=== PATIENT | male | born 1965 | race Caucasian/White ===

== ENCOUNTER 2021-02-23 16:42 | Inpatient (IN) | payer MEDICARE ==
[~2021-02-23] VITALS: Ht 188 cm; Wt 146.7 kg
[~2021-02-23 16:42] MED LIST: ACTOS30 MG PO; ADALAT CC30 MG PO; ASPIRIN325 MG PO; BENICAR *OUT OF20 MG PO; BREO ELLIPTA 11 EACH INH; BUMEX1 MG PO; CRESTOR10 MG PO; HCTZ25 MG PO; K-DUR20 MEQ PO; LOTREL; MAGNESIUM400 MG PO; METFORMIN HCL500 MG PO; MIRALAX17 GM PO; NORCO 5-325 TA1 EACH PO; NORCO 7.5-3251 EACH PO; OCEAN37.5 ML; VENTOLIN HFA IN18 GM INH; XANAX0.5 MG PO
[2021-02-23 18:38] LABS: BASOPHIL 0.4 % (0-2); HCT 44.8 % (42.0-52.0); LYMPHOCYTE 20.1 % (15-48); MCH 28.9 pg (25.0-31.0); MCHC 31.3 g/dL (32.0-36.0); MCV 92.4 fL (78.0-100.0); MONOCYTE 7.3 % (0-12); NRBC 0; PLT 273 K/uL (150-400); RBC 4.85 M/uL (4.70-6.00); RDW 14.6 % (11.5-14.0)
[2021-02-23 19:01] LABS: ALBUMIN 3.5 g/dL (3.4-5.0); BILIRUBIN - TOTAL 0.4 mg/dL (0.2-1.0); BUN/CREAT RATIO (CALC) 9.9 RATIO; CREATININE 0.81 mg/dL (0.67-1.17); GLOBULIN (CALCULATION) 4.9 g/dL; POTASSIUM 3.9 mmol/L (3.5-5.1); TOTAL PROTEIN 8.4 g/dL (6.4-8.2)
[2021-02-23 19:10] LABS: LACTIC ACID 2.3 mmol/L (0.4-1.9)
[2021-02-23 19:40] LABS: BILIRUBIN 1+ mg/dL (NEGATIVE); BLOOD NEGATIVE Ery/uL (NEGATIVE); CLARITY HAZY (CLEAR); COLOR YELLOW (YELLOW); GLUCOSE (U) NORMAL (NORMAL); LEUKOCYTES NEGATIVE Leu/uL (NEGATIVE); NITRITE NEGATIVE (NEGATIVE); PROTEIN TRACE (LOW) mg/dL (NEGATIVE); SPECIFIC GRAVITY >=1.030 (1.001-1.030)
[2021-02-23 19:46] LABS: BACTERIA TRACE; MUCOUS MODERATE; SQUAMOUS EPITHELIAL CELLS RARE
[2021-02-23 20:03] LABS: CORONAVIRUS 2019 SARS-COV-2 NEGATIVE (NEGATIVE); INFLUENZA A NAA NEGATIVE (NEGATIVE)
[2021-02-24 07:13] LABS: CHOLESTEROL 259 mg/dL (<200); HDL 39 mg/dL (40-60); LDL - DIRECT 190 mg/dL (<100); TRIGLYCERIDES 119 mg/dL (<150)
[2021-02-24] MEDS ORDERED: HYDROCODON-ACE1 EAC2 PO (16:21)
[2021-02-24] MEDS ORDERED: CYMBALTA 30MG C30 MG PO (16:22)
[2021-02-25 04:28] LABS: BASOPHIL 0.2 % (0-2); EOSINOPHIL 0 % (0-5); HCT 44.8 % (42.0-52.0); HGB 14.2 g/dl (13.2-18.0); LYMPHOCYTE 10.3 % (15-48); MCH 29.3 pg (25.0-31.0); MCHC 31.7 g/dL (32.0-36.0); MCV 92.4 fL (78.0-100.0); MONOCYTE 9.2 % (0-12); MPV 11.2 fL (6.0-9.5); NRBC 0; PLT 329 K/uL (150-400); RBC 4.85 M/uL (4.70-6.00); RDW 14.3 % (11.5-14.0); WBC 29.4 K/uL (4.0-10.5)
[2021-02-25 04:46] LABS: NEUTROPHIL 79.2 % (41-80)
[2021-02-25 04:51] LABS: CREATININE 0.75 mg/dL (0.67-1.17); POTASSIUM 3.9 mmol/L (3.5-5.1)
[2021-02-26 06:48] LABS: HCT 42.5 % (42.0-52.0); HGB 13.5 g/dl (13.2-18.0); MCH 29.7 pg (25.0-31.0); MCHC 31.8 g/dL (32.0-36.0); MCV 93.4 fL (78.0-100.0); MPV 11.4 fL (6.0-9.5); RBC 4.55 M/uL (4.70-6.00); RDW 14.3 % (11.5-14.0); WBC 19.3 K/uL (4.0-10.5)
[2021-02-26] MEDS ORDERED: AZITHROMYCIN250 MG PO ×2 (11:38→11:45)
[2021-02-26] MEDS ORDERED: MEDROL 4MG DOSEP4 MG PO (11:38)
[2021-02-26] MEDS ORDERED: PANTOPRAZOLE SO40 MG PO (11:38)
[2021-02-26] MEDS ORDERED: NICOTINE PATCH1 EAC2 TD (11:38)
== END 2021-02-26 17:30 | disposition home or self-care (01) | DRG 280 ==
LOC: FER 16:42 → FTCU 22:30 → FER 22:35 → FTCU 22:58
PROVIDERS: Emergency Medicine; Emergency Medicine Emergency Medical Services; Hospitalist; Internal Medicine Cardiovascular Disease; ADMIT Allergy & Immunology Allergy
DX: I21.4 Non-ST elevation (NSTEMI) myocardial infarction (principal); J96.01 Acute respiratory failure with hypoxia; J18.9 Pneumonia, unspecified organism; Z68.41 Body mass index [BMI] 40.0-44.9, adult; J43.9 Emphysema, unspecified; E11.9 Type 2 diabetes mellitus without complications; I10 Essential (primary) hypertension; E78.5 Hyperlipidemia, unspecified; Z20.822 Contact with and (suspected) exposure to COVID-19; E66.9 Obesity, unspecified; G47.33 Obstructive sleep apnea (adult) (pediatric); K76.0 Fatty (change of) liver, not elsewhere classified; F17.200 Nicotine dependence, unspecified, uncomplicated; F41.9 Anxiety disorder, unspecified; G89.29 Other chronic pain; Z86.73 Personal history of transient ischemic attack (TIA), and cerebral infarction without residual deficits; Z79.84 Long term (current) use of oral hypoglycemic drugs; Z79.899 Other long term (current) drug therapy; Z98.890 Other specified postprocedural states
CPT/HCPCS: 36415; 36600; 71045; 71275; 80048; 80053; 80061; 81001; 82150; 82803; 82962; 83605; 83735; 83880; 84145; 84484; 85025; 85379; 87040; 87088; 93005; 94640; 94660; 94664; 94762; A4216; J0456; J0696; J1650; J2930; J7050; J7512; Q9967; U0002